=== PATIENT | female | born 1990 | race Caucasian/White ===

== ENCOUNTER → 2016-10-29 | Outpatient (CLI) | payer OTHER ==
--- NOTE | 2016-10-30 07:29 | US ---
EXAMINATION TYPE: US OB anatomy transabd DATE OF EXAM: 10/29/2016 4:22 PM COMPARISON: US on PACS first trimester August 29, 2016. HISTORY: LGA; TECHNIQUE: Transabdominal (TA) pelvic ultrasound. EXAM MEASUREMENTS: GESTATIONAL AGE / DATING Physician Established: (19 weeks/ day) EDC: 03/24/2017 Dates by LMP: ( weeks/ day) EDC: 03/24/2017 Dates by First Scan: ( weeks/ 4 days) EDC: 03/21/2017 Dates by Current Scan for: ( weeks/) EDC: 03/24/2017 SURVEY IUP: single PLACENTA: anterior PREVIA: No previa ANNIE: 11.9 cm Normal CERVICAL LENGTH (transabdominal: norm > 3.0cm): 4.6 cm BIOMETRY PRESENTATION: Breech LIE: Longitudinal BPD: 4.2 cm 18 weeks / 5 days HC: 15.9 cm 18 weeks / 5 days AC: 14.3 cm 19 weeks / 4 days FL: 3.1 cm 19 weeks / 3 days ESTIMATED WEIGHT IN GRAMS: 293.2 grams ESTIMATED WEIGHT IN LBS/OZS: 0 lbs. 10 oz. WEIGHT PERCENTAGE BASED ON ESTABLISHED DATE: 64.2 % HC/AC: 1.12 normal FL/AC: 21.39 normal HEART RATE: 142 bpm RHYTHM: Normal ANATOMY SEEN (within normal limits): * Lateral Vent (< 1 cm) 0.6 cm * Cisterna Magna (< 1.1 cm) 0.4 cm * Nuchal Fold (< 0.6 cm) 0.5 cm * Cerebellum (varies with age) 1.8 cm Choroid Plexus (bilateral) Midline Falx Cavus Septi Pellucidi Four Chamber Heart Outflow tracts: LVOT/RVOT Stomach Situs Diaphragm Kidneys (bilateral) Bladder Cord Insert Three Vessel Cord Longitudinal Spine Transverse Spine Arms (bilateral) Legs (bilateral) ANATOMY NOT SEEN: Nose / Lips and best seen after 20 weeks gestation TECHNOLOGIST IMPRESSION: single, live IUP,19 weeks/1 day,EDC: 03/24/2017,, HR142 bpm. Single live intrauterine gestation is redemonstrated. heart tones are regular and measure 142 b pm which is within normal limits. A breech presentation to fetus is currently seen. There is no evide nce for placenta previa. Amniotic fluid index is within normal limits. biometry measurements ar e consistent and within normal limits. Detailed anatomical survey shows no suspicious abnormality dur ing real-time scanning. Kidneys are difficult to visualize on still image saved. nose and lips cannot be documented on coronal plane. IMPRESSION: As above.
== END | disposition home or self-care (01) ==
LOC: RADUSWWP 14:55
PROVIDERS: ATTEND Obstetrics & Gynecology
DX: O36.62X0 Maternal care for excessive fetal growth, second trimester, not applicable or unspecified (principal); O32.1XX0 Maternal care for breech presentation, not applicable or unspecified; Z3A.19 19 weeks gestation of pregnancy
CPT/HCPCS: 76811

== ENCOUNTER → 2016-12-13 | Outpatient (CLI) | payer OTHER ==
[2016-12-13 10:59] LABS: CH 30.4; CHCM 34.3; HCT 37.3 % (34.0-46.0); HDW 2.96; HGB 12.8 gm/dL (11.4-16.0); MCH 30.5 pg (25.0-35.0); MCHC 34.3 g/dL (31.0-37.0); MCV 89.2 fL (80.0-100.0); Mean Platelet Volume 8.6; RBC 4.19 m/uL (3.80-5.40); RDW 12.8 % (11.5-15.5); WBC 7.1 k/uL (3.8-10.6)
== END ==
LOC: LABWHC1 08:53
PROVIDERS: ATTEND Obstetrics & Gynecology
DX: Z34.92 Encounter for supervision of normal pregnancy, unspecified, second trimester (principal); Z3A.00 Weeks of gestation of pregnancy not specified
CPT/HCPCS: 36415; 82950; 85027

== ENCOUNTER 2017-03-11 08:42 | Inpatient (IN) | payer OTHER ==
[2017-03-11] MEDS ORDERED: CARBOPROST TROMETHAMINE 250 MCG/ML 1 ML AMP IM PRN (09:52)
[2017-03-11] MEDS ORDERED: OXYTOCIN 10 UNIT/ML 1 ML VIAL IM PRN (09:52)
[2017-03-11] MEDS ORDERED: METHYLERGONOVINE 0.2 MG/ML 1 ML AMP IM PRN (09:52)
[2017-03-11] MEDS ORDERED: TERBUTALINE 1 MG/ML VIAL SQ PRN (09:52)
[2017-03-11] MEDS ORDERED: LIDOCAINE 1% (PF) 10 MG/ML (30 ML SDV) SQ PRN (09:52)
[2017-03-11] MEDS: LACTATED RINGERS 1,000 ML IV SCH ×2 (10:25→10:51)
[2017-03-11 10:44] LABS: Basophils % (A) 0 %; CH 28.8; CHCM 33.3; Eosinophils % (A) 0 %; HCT 38.4 % (34.0-46.0); HDW 3.04; HGB 12.7 gm/dL (11.4-16.0); Luc # (Auto) 0.33; Luc % (Auto) 5; Lymphocytes # (A) 1.6 k/uL (1.0-4.8); Lymphocytes % (A) 21 %; MCH 28.7 pg (25.0-35.0); MCV 86.8 fL (80.0-100.0); Mean Platelet Volume 8.9; Monocytes # (A) 0.3 k/uL (0-1.0); Monocytes % (A) 5 %; Neutrophils # (A) 5.1 k/uL (1.3-7.7); Neutrophils % (A) 69 %; RBC 4.43 m/uL (3.80-5.40); RDW 14.3 % (11.5-15.5); WBC 7.3 k/uL (3.8-10.6); WBC (Perox) 7.85
[2017-03-11 10:51] LABS: Appearance,Urine Clear (Clear); Bilirubin,Urine Negative (Negative); Glucose,Urine (UA) Negative (Negative); Ketones,Urine Negative (Negative); Leukocyte Esterase,Urine Negative (Negative); Nitrite,Urine Negative (Negative); Protein,Urine Trace (Negative); Specific Gravity,Urine 1.011 (1.001-1.035); UA Billing (MACRO vs. MICRO) CHEM; Urobilinogen,Urine <2.0 mg/dL (<2.0)
[2017-03-11 10:54] LABS: INR 0.9 (<1.1); Partial Thromboplastin Time 22.4 sec (22.0-30.0); Prothrombin Time 9.3 sec (9.0-12.0)
[2017-03-11 10:55] LABS: ALT 25 U/L (9-52); AST 19 U/L (14-36); LDH 533 U/L (313-618); Non-African American GFR(MDRD) >60 (>60 ml/min/1.73 sqM); Uric Acid 3.8 mg/dL (3.7-7.4)
[2017-03-11] MEDS ORDERED: BUPIVACAINE (PF) 0.25% 30 ML VIAL ONE (10:57)
[2017-03-11] MEDS ORDERED: fentaNYL (PF) 50 MCG/ML 5 ML AMP ONE (10:57)
[2017-03-11] MEDS ORDERED: SODIUM CHLORIDE 0.9% 100 ML BAG ONE (10:57)
[2017-03-11] MEDS ORDERED: BUPIVACAINE (PF) 0.25% 25 ML, fentaNYL (PF) 200 MCG in SODIUM CHLORIDE 0.9% 71 ML EPIDURAL ONE (11:12)
[2017-03-11 11:58] VITALS: BMI 34.3
--- NOTE | 2017-03-11 13:28 | P.HPOB ---
History of Present Illness H&P Date: 03/11/17 Chief Complaint: Contractions This is a 27-year-old female 4 para 1 with an estimated date of confinement of 03/24/2017, estimated gestational age of 38 and one sevenths weeks, who presents to labor and delivery complaining of contractions since approximate 4 AM this morning. She denies any rupture of membranes. care has been with Dr. Gregory and has been uncomplicated per patient. Her previous delivery was a section and she has signed consent for vaginal after . labs: GC/chlamydia-negative HIV-nonreactive Random glucose-121 Hepatitis B surface antigen-negative Hemoglobin-12.8 Platelet count-138,000 initially Rubella-nonimmune Blood type-A+ Antibody screen-negative Obstetrical ultrasound-normal anatomy One hour Glucola-115 Group B streptococcus-negative Obstetrical history: . History of 1 termination of and 1 miscarriage. History of a delivery at 39 weeks due to distress. Gynecologic history: No history of sexual transmitted disease. Social history: She is single. Works as a [employer]. Review of Systems Constitutional: Denies chills, Denies fever Eyes: denies blurred vision, denies pain Cardiovascular: Denies chest pain, Denies shortness of breath Respiratory: Denies cough Gastrointestinal: Reports abdominal pain (Contractions) Genitourinary: Reports pelvic pain, Reports Musculoskeletal: Denies myalgias Integumentary: Reports as per HPI Neurological: Denies numbness, Denies weakness Psychiatric: Denies anxiety, Denies depression Past Medical History Past Medical History: No Reported History History of Any Multi-Drug Resistant Organisms: None Reported Past Surgical History: Adenoidectomy, Section, Tonsillectomy Past Anesthesia/Blood Transfusion Reactions: No Reported Reaction Past Psychological History: No Psychological Hx Reported Smoking Status: Never smoker Past Alcohol Use History: None Reported Past Drug Use History: None Reported - Past Family History Mother Family Medical History: Hypertension Medications and Allergies Home Medications Medication Instructions Recorded Confirmed Type No Known Home Medications [No 03/11/17 03/11/17 History Known Home Medications] Allergies Allergy/AdvReac Type Severity Reaction Status Date / Time Sulfa (Sulfonamide Allergy Rash/Hives Verified 03/11/17 09:00 Antibiotics) Exam Osteopathic Statement: *. No significant issues noted on an osteopathic structural exam other than those noted in the History and Physical/Consult. - Vital Signs Vital signs: Vital Signs Temp Pulse Resp BP Pulse Ox 03/11/17 11:19 97.1 F L 85 18 165/98 100 03/11/17 09:01 97.1 F L 83 18 165/98 Intake and Output 03/10/17 03/11/17 03/11/17 22:59 06:59 14:59 Other: Weight 87.997 kg Patient Weight 03/12/17 06:59 Weight 87.997 kg HEENT: Within normal limits Heart: Regular rate and rhythm Lungs: Clear to auscultation bilaterally Abdomen: Cervix: 4-1/2 cm/70%/-2 station heart tones: Reactive Contractions: Every 2-5 minutes Extremities: Negative Homans Results Result Diagrams: 03/11/17 10:25 03/11/17 10:25 Abnormal Lab Results - Last 24 Hours (Table) 03/11/17 03/11/17 03/11/17 Range/Units 10:10 10:25 10:25 Plt Count 125 L (150-450) k/uL Creatinine 0.47 L (0.52-1.04) mg/dL Urine Protein Trace H (Negative) Assessment and Plan (1) 38 weeks gestation of Status: Acute (2) Previous delivery affecting Status: Acute (3) Elevated blood pressure complicating in third trimester, antepartum Status: Acute Plan: Proceed with admission for active labor. Epidural anesthesia. Will monitor blood pressures after epidural. We'll obtain labs for hypertension in . Patient has signed consent for vaginal after . Internal monitors will be placed for close monitoring of labor.
[2017-03-11] MEDS ORDERED: OXYTOCIN 20 UNITS/1000 ML NS 1,000 ML IV SCH ×2 (13:30→17:17)
--- NOTE | 2017-03-11 17:08 | P.PROBDLV ---
Vaginal Delivery Note - . Vaginal Delivery Note: The patient progressed to complete dilation after artificial rupture membranes with clear fluid noted and oxytocin augmentation of labor. She also received epidural anesthesia. Once reaching complete, she began pushing. 's head came to a crown. With one further push, the 's head delivered across the perineum followed by the anterior shoulder. Nose and mouth were bulb suctioned at the perineum. With one further push, the remainder the infant easily delivered and was placed on mother's abdomen. Brisk cry was noted immediately. A viable female was noted with scores of 9 at 1 minute and 9 at 5 minutes and weight of 5 lbs. 15 oz. Placenta delivered shortly thereafter, intact, with a three-vessel cord. Uterus contracted fairly well after oxytocin was given and uterine massage was carried out. A gloved hand was inserted into the anterior uterine cavity to ensure all placental tissue was removed and to remove blood clot. Inspection of the perineum revealed a second-degree perineal laceration. This area was anesthetized with 1% lidocaine and then sutured with 3-0 and 2-0 Vicryl suture in the usual multilayer fashion. Estimated blood loss is approximately 200 mL's. Both mother and infant are in stable condition. This was a vaginal after .
[2017-03-11] MEDS ORDERED: diphenhydrAMINE 50 MG CAP PO PRN (17:17)
[2017-03-11] MEDS ORDERED: HYDROCORTISONE 2.5% RECTAL CREAM 30 GM TUBE RECTAL PRN (17:17)
[2017-03-11] MEDS ORDERED: BENZOCAINE/MENTHOL SPRAY 1 GM/SPRAY AEROSOL TOPICAL PRN (17:17)
[2017-03-11] MEDS ORDERED: LANOLIN CREAM 5 GM TUBE TOPICAL PRN (17:17)
[2017-03-11] MEDS ORDERED: ZOLPIDEM 5 MG TAB PO PRN (17:17)
[2017-03-11] MEDS ORDERED: diphenhydrAMINE 50 MG/ML 1 ML VIAL IVP PRN ×2 (17:17)
[2017-03-11] MEDS ORDERED: SIMETHICONE 80 MG CHEWABLE PO PRN (17:17)
[2017-03-11] MEDS ORDERED: ACETAMINOPHEN TAB 325 MG TAB PO PRN (17:17)
[2017-03-11] MEDS ORDERED: diphenhydrAMINE 25 MG CAP PO PRN (17:17)
[2017-03-11] MEDS ORDERED: WITCH HAZEL 1 EACH MED..PAD TOPICAL PRN (17:17)
[2017-03-11] MEDS: IBUPROFEN 600 MG TAB PO PRN (17:59)
[2017-03-11] MEDS: SENNOSIDES-DOCUSATE SODIUM 1 EACH TAB PO SCH (20:02)
[2017-03-11] MEDS: Acetaminophen-Codeine 300-30mg TAB PO PRN (22:33)
[2017-03-12] MEDS: IBUPROFEN 600 MG TAB PO PRN ×3 (03:35→19:53)
[2017-03-12] MEDS: Acetaminophen-Codeine 300-30mg TAB PO PRN ×2 (07:29→17:06)
[2017-03-12] MEDS: SENNOSIDES-DOCUSATE SODIUM 1 EACH TAB PO SCH ×2 (07:30→19:48)
--- NOTE | 2017-03-12 09:01 | P.PNOBGVD ---
Subjective - Subjective Principal diagnosis: Status post vaginal after section day #1 Interval history: Patient is doing well. She is having some mild cramping that is controlled with oral pain medication. Lochia is moderate. Baby is in special care nursery at this time. Patient reports: Reports appetite normal, Reports voiding normally, Reports pain well controlled, Reports ambulating normally Royal: other (In special care nursery) Objective - Latest Vital Signs Latest vital signs: Vital Signs Temp Pulse Resp BP BP Pulse Ox 03/12/17 08:05 96 133/78 03/12/17 07:41 98.1 F 101 H 16 142/81 142/90 03/12/17 03:36 98.4 F 101 H 16 147/87 99 03/12/17 00:00 98.5 F 91 16 131/84 98 03/11/17 20:00 98.6 F 110 H 16 136/82 03/11/17 19:02 98.8 F 122 H 18 137/88 03/11/17 18:32 126 H 18 135/80 03/11/17 18:02 98.6 F 118 H 18 136/76 03/11/17 17:47 127 H 18 134/78 03/11/17 17:32 99.2 F 118 H 18 137/78 03/11/17 17:17 122 H 18 134/79 03/11/17 17:02 98.8 F 126 H 18 129/88 03/11/17 11:19 97.1 F L 85 18 165/98 100 03/11/17 09:01 97.1 F L 83 18 165/98 Intake and Output 03/11/17 03/12/17 03/12/17 22:59 06:59 14:59 Intake Total 12.9 Balance 12.9 Intake: Intake, IV Titration 12.9 Amount Oxytocin 20 Units/1000 ml 12.9 Ns 1,000 ml @ 1 MILLIUNIT/MIN 3 mls/hr IV .Q24H [facility] Rx#:[id number] Other: # Voids 1 - Exam Extremities: Present: normal. Absent: tenderness, edema Abdomen: Present: normal appearance, soft. Absent: distention, tenderness Uterus: Present: normal, firm. Absent: tenderness - Labs Labs: Abnormal Lab Results - Last 24 Hours (Table) 03/11/17 03/11/17 03/11/17 Range/Units 10:10 10:25 10:25 Plt Count 125 L (150-450) k/uL Creatinine 0.47 L (0.52-1.04) mg/dL Urine Protein Trace H (Negative) Assessment and Plan (1) 38 weeks gestation of Current Visit: Yes Status: Acute Code(s): Z3A.38 - 38 WEEKS GESTATION OF SNOMED Code(s): 80534549 (2) Previous delivery affecting Current Visit: Yes Status: Acute Code(s): O34.219 - MATERNAL CARE FOR UNSP TYPE SCAR FROM PREVIOUS DEL SNOMED Code(s): 791804371 (3) Elevated blood pressure complicating in third trimester, antepartum Current Visit: Yes Status: Acute Code(s): O13.3 - GESTATIONAL HTN W/O SIGNIFICANT PROTEINURIA, THIRD TRIMESTER SNOMED Code(s): 38670986 (4) Vaginal after () Narrative/Plan: Impression is day #1. Plan is to continue with care since baby is in special care nursery at this time. Anticipate discharge home tomorrow. Current Visit: Yes Status: Acute Code(s): O34.219 - MATERNAL CARE FOR UNSP TYPE SCAR FROM PREVIOUS DEL SNOMED Code(s): 263010376
[2017-03-12 09:26] LABS: Basophils % (A) 0 %; CH 28.3; CHCM 32.9; Eosinophils % (A) 0 %; HCT 32.3 % (34.0-46.0); HGB 10.6 gm/dL (11.4-16.0); Luc # (Auto) 0.21; Luc % (Auto) 4; Lymphocytes # (A) 2.3 k/uL (1.0-4.8); Lymphocytes % (A) 38 %; MCH 28.5 pg (25.0-35.0); MCHC 32.9 g/dL (31.0-37.0); MCV 86.4 fL (80.0-100.0); Mean Platelet Volume 8.2; Monocytes # (A) 0.3 k/uL (0-1.0); Monocytes % (A) 5 %; Neutrophils # (A) 3.3 k/uL (1.3-7.7); Neutrophils % (A) 53 %; RBC 3.74 m/uL (3.80-5.40); RDW 14.5 % (11.5-15.5); WBC 6.1 k/uL (3.8-10.6)
[2017-03-13] MEDS: Acetaminophen-Codeine 300-30mg TAB PO PRN ×2 (00:24→05:42)
--- NOTE | 2017-03-13 08:33 | P.DS ---
Providers Date of admission: 03/11/17 09:53 Expected date of discharge: 03/13/17 Attending physician: Mai Gregory - Discharge Diagnosis(es) (1) 38 weeks gestation of Current Visit: Yes Status: Acute (2) Previous delivery affecting Current Visit: Yes Status: Acute (3) Elevated blood pressure complicating in third trimester, antepartum Current Visit: Yes Status: Acute (4) Vaginal after () Current Visit: Yes Status: Acute Hospital Course: This is a 27-year-old female 4 para 1 at 38 and one sevenths weeks who presented in active labor. She initially had some elevated blood pressures that did resolve after epidural anesthesia. All her labs were normal other than she has slightly low platelets that has been present throughout her . She had a successful vaginal after section and delivered a viable female with scores of 9 at 1 minute and 9 at 5 minutes and weight of 5 lbs. 15 oz. on 03/11/2017. She is attempting to breast-feed and pump her breast milk. Baby is in special care nursery on antibiotics at this time. Lochia is decreasing. Pain is fairly well controlled with oral pain medications. Vital signs are stable. Abdomen is soft with fundus firm and nontender. Extremities show negative Homans. Impression is status post vaginal delivery after day #2. Plan is to discharge home today. Routine instructions are given. She will be given a prescription for ibuprofen as needed. She already has a breast pump at home. She is advised to follow up with Dr. Gregory in 6 weeks for her check. She is advised to call the office if she has any further questions or concerns prior to her appointment time. Procedures: Vaginal after section on 03/11/2017 Patient Condition at Discharge: Stable Plan - Discharge Summary New Discharge Prescriptions: New Acetaminophen Tab [Tylenol] 650 mg PO Q4HR PRN tab PRN Reason: Mild Pain Or Fever >= 100.5 Ibuprofen [Motrin] 600 mg PO Q6HR PRN #60 tab PRN Reason: Mild Pain Or Fever >= 100.5 Discharge Medication List Acetaminophen Tab [Tylenol] 650 mg PO Q4HR PRN tab 03/13/17 [Rx] Ibuprofen [Motrin] 600 mg PO Q6HR PRN #60 tab 03/13/17 [Rx] Follow up Appointment(s)/Referral(s): Mai Gregory DO [Doctor of Osteopathic Medicine] - 6 Weeks Activity/Diet/Wound Care/Special Instructions: Instructions 1. Do not begin any exercise program for 3 weeks. 2. Do not resume sexual relations for 3 weeks or longer if uncomfortable. 3. You may take tub baths or showers at any time. 4. You may use tampons if desired after 3 weeks. 5. Keep the area of episiotomy (stitches) clean and dry. 6. If you are not nursing, wear a good fitting, supportive bra during the day and limit fluid intake for at least 1 week to prevent breast engorgement. 7. Call the office, [phone], within the next week to make appointment for your 6 week checkup if it has not already been made. 8. Report any of the following occurrences to the doctor promptly: a. Heavy, excessive bleeding b. Chills, fever c. Burning or frequency of urination d. Pain or redness and breasts if nursing e. Increasing pain or swelling in episiotomy (stitches). In addition to the above instructions, the following additional should be followed: 1. No heavy lifting or straining (exercising) until after 6 week checkup. 2. Keep abdominal incision clean and dry: You may wear a dressing if more comfortable. 3. Make office appointment for 10 days after going home or as instructed by her doctor. Discharge Disposition: HOME SELF-CARE
[2017-03-13 09:36] VITALS: RESP 18
[2017-03-13] MEDS: SENNOSIDES-DOCUSATE SODIUM 1 EACH TAB PO SCH (10:26)
[2017-03-13] MEDS: IBUPROFEN 600 MG TAB PO PRN ×2 (10:26→18:23)
[2017-03-13 16:54] VITALS: BP 139/92; PULSE 98; TEMP 98.3
== END 2017-03-13 18:36 | disposition home or self-care (01) | DRG 775 ==
LOC: FBPOP 08:42 → 4FBP 09:53
PROVIDERS: ADMIT Obstetrics & Gynecology; ATTEND Obstetrics & Gynecology
PROC: 10E0XZZ Delivery of Products of Conception, External Approach (ICD-10-PCS; principal; 2017-03-11)
PROC: 0KQM0ZZ Repair Perineum Muscle, Open Approach (ICD-10-PCS; 2017-03-11)
DX: O34.219 Maternal care for unspecified type scar from previous cesarean delivery (principal); O99.12 Other diseases of the blood and blood-forming organs and certain disorders involving the immune mechanism complicating childbirth; D69.6 Thrombocytopenia, unspecified; R03.0 Elevated blood-pressure reading, without diagnosis of hypertension; O26.893 Other specified pregnancy related conditions, third trimester; O70.1 Second degree perineal laceration during delivery; Z37.0 Single live birth; Z3A.38 38 weeks gestation of pregnancy; Z88.2 Allergy status to sulfonamides; Z82.49 Family history of ischemic heart disease and other diseases of the circulatory system
CPT/HCPCS: 59025; 81003; 82565; 83615; 84450; 84460; 84550; 85025; 85610; 85730; 86850; 86900; 86901; 88307; 99213

== ENCOUNTER 2017-03-25 17:31 | Emergency (ER) | payer OTHER ==
[2017-03-25 18:02] VITALS: RESP 20
--- NOTE | 2017-03-25 19:43 | ED ---
General Adult HPI - General Chief complaint: Fever Stated complaint: Fever post delivery Time Seen by Provider: 03/25/17 19:04 Source: patient, RN notes reviewed Mode of arrival: ambulatory Limitations: no limitations - History of Present Illness Initial comments: If complaint history of present illness a 27-year-old female with complaint of fever for 2 days. Patient was at the urgent care yesterday complaining of a sore throat rapid strep was negative. No adenopathy. Mild headache but no meningismus no stiff neck. Current temperature 99.7. No nausea no vomiting slightly runny nose. She did have normal spontaneous vaginal delivery with the PTO or feet 2 weeks ago. It is tender in that area. Examination pending. - Related Data Previous Rx's Medication Instructions Recorded Ibuprofen [Motrin] 600 mg PO Q6HR PRN #60 tab 03/13/17 Ciprofloxacin HCl [Cipro] 500 mg PO Q12HR #14 tablet 03/25/17 Allergies Allergy/AdvReac Type Severity Reaction Status Date / Time measles, mumps, and rubella Allergy Unknown Verified 03/25/17 19:46 vaccine Childhood [From M-M-R II] Sulfa (Sulfonamide Allergy Rash/Hives Verified 03/25/17 19:45 Antibiotics) Review of Systems ROS Statement: Those systems with pertinent positive or pertinent negative responses have been documented in the HPI. Review of systems no complaint of any other mild headache and fever. But no evidence of any meningismus or stiff neck. No chest pain shortness breath GI/ problems complained of. She did have diffuse your for 2 weeks ago for numb normal spontaneous vaginal delivery. All systems reviewed. Past medical problems none surgeries . Family history an aunt had lung cancer. Patient has hives with sulfa. Nonsmoker nondrinker. ROS Other: All systems not noted in ROS Statement are negative. Past Medical History Past Medical History: No Reported History History of Any Multi-Drug Resistant Organisms: None Reported Past Surgical History: Adenoidectomy, Section, Tonsillectomy Past Anesthesia/Blood Transfusion Reactions: No Reported Reaction Past Psychological History: No Psychological Hx Reported Smoking Status: Never smoker Past Alcohol Use History: None Reported Past Drug Use History: None Reported - Past Family History Mother Family Medical History: Hypertension General Exam - General Exam Comments Initial Comments: General: The patient is awake and alert, in no distress, and does not appear acutely ill. Reports a fever for 2 days. Current temperature 99.7. Patient took ibuprofen at 4 PM today. Vital signs temp 99.7 pulse 99 respiratory rate 20 pulse ox 90% room air blood pressure 152/90. Eye: Pupils are equal, round and reactive to light, extra-ocular movements are intact ; there is normal conjunctiva bilaterally. No signs of icterus. Ears, nose, mouth and throat: There are moist mucous membranes and no oral lesions. Neck: The neck is supple, there is no tenderness , no anterior cervical lymphadenopathy, thyroid not enlarged. No stiff neck. No meningismus. Cardiovascular: There is a regular rate and rhythm. No murmur, rub or gallop is appreciated. Respiratory: Lungs are clear to auscultation, respirations are non-labored, breath sounds are equal. No wheezes, stridor, rales, or rhonchi. Gastrointestinal: Soft, non-distended, non-tender abdomen without masses or organomegaly noted. There is no rebound or guarding present. No CVA tenderness. Bowel sounds are unremarkable. Genitalia examination. No discharge noted. The episiorrhaphy appears to be healing without infection. No pain with palpation. M examination done with nurse Valentina. Back: There is no tenderness to palpation in the midline. There is no obvious deformity. No rashes noted. Negative kidney punch his. Musculoskeletal: Normal ROM, no tenderness, There is no pedal edema. There is no calf tenderness or swelling. Sensation intact. Neurological: No neuro deficits. Skin: Skin is warm and dry and no rashes or lesions are noted. Limitations: no limitations Course Vital Signs 03/25/17 03/25/17 17:59 19:18 Temperature 99.7 F H Pulse Rate 99 Respiratory 20 20 Rate Blood Pressure 152/90 O2 Sat by Pulse 99 Oximetry Medical Decision Making - Medical Decision Making Rectal decision making. The patient's urine shows 15 red blood cells are 57 reds only 4 squamous. Positive leukoesterase. Patient be placed on Cipro 500 twice a day for 1 week. She does have an ALLERGY to sulfa. - Lab Data Lab Results 03/25/17 Range/Units 19:41 Urine Color Yellow Urine Appearance Cloudy H (Clear) Urine pH 6.5 (5.0-8.0) Ur Specific [place] 1.015 (1.001-1.035) Urine Protein Trace H (Negative) Urine Glucose (UA) Negative (Negative) Urine Ketones Negative (Negative) Urine Blood Negative (Negative) Urine Nitrite Negative (Negative) Urine Bilirubin Negative (Negative) Urine Urobilinogen 2.0 (<2.0) mg/dL Ur Leukocyte Esterase Large H (Negative) Urine RBC 15 H (0-5) /hpf Urine WBC 157 H (0-5) /hpf Ur Squamous Epith Cells 4 (0-4) /hpf Urine Mucus Many H (None) /hpf Disposition Clinical Impression: Urinary tract infection Disposition: HOME SELF-CARE Condition: Good Instructions: Urinary Tract Infection in Women (ED) Additional Instructions: Increase fluids. Take Cipro 500 twice a day for 1 week. Get urine rechecked one week later. Follow-up family physician Prescriptions: Ciprofloxacin HCl [Cipro] 500 mg PO Q12HR #14 tablet Referrals: None,Stated [Primary Care Provider] - 1-2 days Time of Disposition: 20:15
[2017-03-25 19:56] LABS: Appearance,Urine Cloudy (Clear); Bilirubin,Urine Negative (Negative); Glucose,Urine (UA) Negative (Negative); Ketones,Urine Negative (Negative); Leukocyte Esterase,Urine Large (Negative); Mucus,Urine Many /hpf; Nitrite,Urine Negative (Negative); PH, Urine 6.5 (5.0-8.0); Particle Count 13271; Protein,Urine Trace (Negative); RBC,Urine 15 /hpf (0-5); Specific Gravity,Urine 1.015 (1.001-1.035); Squamous Epithelial Cell,Urine 4 /hpf (0-4); UA Billing (MACRO vs. MICRO) MICRO; WBC,Urine 157 /hpf (0-5)
[2017-03-25 20:26] VITALS: BP 142/89; PULSE 85; TEMP 98.7
== END 2017-03-25 20:25 | disposition home or self-care (01) ==
LOC: EC 17:31
DX: O86.20 Urinary tract infection following delivery, unspecified (principal); Z88.2 Allergy status to sulfonamides; Z88.7 Allergy status to serum and vaccine
CPT/HCPCS: 81001; 87086; 99283

== ENCOUNTER → 2017-05-23 | Outpatient (CLI) | payer OTHER | END | disposition home or self-care (01) | LOC: LABWHC1 10:53 | PROVIDERS: ATTEND Obstetrics & Gynecology | DX: N92.6 Irregular menstruation, unspecified (principal) | CPT/HCPCS: 36415; 84702 ==

== ENCOUNTER 2017-06-03 11:36 | Emergency (ER) | payer OTHER ==
[2017-06-03 13:16] LABS: Appearance,Urine Clear (Clear); Bacteria,Urine Rare /hpf; Bilirubin,Urine Negative (Negative); Glucose,Urine (UA) Negative (Negative); Ketones,Urine Negative (Negative); Leukocyte Esterase,Urine Trace (Negative); Mucus,Urine Occasional /hpf; Nitrite,Urine Negative (Negative); Particle Count 3808; Protein,Urine Trace (Negative); RBC,Urine 8 /hpf (0-5); Specific Gravity,Urine 1.013 (1.001-1.035); Squamous Epithelial Cell,Urine 5 /hpf (0-4); UA Billing (MACRO vs. MICRO) MICRO; Urobilinogen,Urine <2.0 mg/dL (<2.0); WBC,Urine 5 /hpf (0-5)
[2017-06-03 13:23] VITALS: BP 138/86; PULSE 73; RESP 18; TEMP 99.4
--- NOTE | 2017-06-03 14:00 | ED ---
Fever HPI - General Chief Complaint: Fever Stated Complaint: fever x 1 week Time Seen by Provider: 06/03/17 12:31 Source: patient Mode of arrival: ambulatory Limitations: no limitations - History of Present Illness Initial Comments: This 27-year-old white female presents with a complaint of some fever as well as chills. She states that she has had it for approximately one week. It seems intermittent in nature. She relates that she also was diagnosed with urinary tract infection a couple months ago. She was asymptomatic at that time. She currently denies any frequency urgency or dysuria. She denies any nasal congestion, sore throat, earaches, cough, or shortness of breath. She denies any abdominal pain. She relates that she will take occasional Tylenol or Motrin for the fever and this seems to help. Her symptoms overall are fairly mild. The highest temperature she has measured his been between 101 and 102. No other complaints or modifying factors. - Related Data Home Medications Medication Instructions Recorded Confirmed Acetaminophen Tab [Tylenol Tab] 1,000 mg PO Q6HR PRN 06/03/17 06/03/17 Escitalopram [Lexapro] 10 mg PO HS 06/03/17 06/03/17 Lo Loestrin Fe 1 tab PO HS 06/03/17 06/03/17 Previous Rx's Medication Instructions Recorded Ciprofloxacin HCl [Cipro] 500 mg PO Q12HR #14 tablet 06/03/17 Allergies Allergy/AdvReac Type Severity Reaction Status Date / Time measles, mumps, and rubella Allergy Unknown Verified 06/03/17 13:27 vaccine Childhood [From M-M-R II] Sulfa (Sulfonamide Allergy Rash/Hives Verified 06/03/17 13:27 Antibiotics) Review of Systems ROS Statement: Those systems with pertinent positive or pertinent negative responses have been documented in the HPI. ROS Other: All systems not noted in ROS Statement are negative. Past Medical History Past Medical History: No Reported History History of Any Multi-Drug Resistant Organisms: None Reported Past Surgical History: Adenoidectomy, Section, Tonsillectomy Past Anesthesia/Blood Transfusion Reactions: No Reported Reaction Past Psychological History: No Psychological Hx Reported Smoking Status: Never smoker Past Alcohol Use History: None Reported Past Drug Use History: None Reported - Past Family History Mother Family Medical History: Hypertension General Exam - General Exam Comments Initial Comments: GENERAL: The patient is well nourished and well hydrated. VITAL SIGNS: Heart rate, blood pressure, respiratory rate reviewed as recorded in nurse's notes. EYES: Pupils are round and reactive. Extraocular movements are intact. No conjunctival / lid redness or swelling. ENT: No external evidence of injury, swelling, or ecchymosis. Airway is patent. Throat is clear. Tympanic membranes are clear. NECK: Nontender. No swelling or evidence of injury. No subcutaneous emphysema. Trachea is midline. No thyroid mass. HEART: Regular rate and rhythm. Good peripheral pulses. LUNGS/CHEST: Breath sounds clear and equal bilaterally. No rales, rhonchi, or wheezes. No ecchymosis, subcutaneous emphysema, or tenderness. ABDOMEN: Abdomen soft without tenderness. No palpable masses or organomegaly. No peritoneal signs. No abdominal wall swelling or ecchymosis. EXTREMITIES: No extremity tenderness. Normal muscle tone and function. No thoracolumbar tenderness. NEUROLOGIC: Sensation is grossly intact. Cranial nerve exam reveals face is symmetrical, tongue is midline, speech is clear. SKIN: No abrasions or ecchymosis is noted. No induration or masses noted. PSYCHIATRIC: Alert and oriented. Appropriate behavior and judgment. Limitations: no limitations Course Vital Signs 06/03/17 06/03/17 11:59 13:20 Temperature 100.0 F H 99.4 F Pulse Rate 94 73 Respiratory 20 18 Rate Blood Pressure 144/90 138/86 O2 Sat by Pulse 99 98 Oximetry Medical Decision Making - Medical Decision Making The patient was seen and examined. All diagnostics were reviewed. The urinalysis does show equivocal evidence of possible urinary tract infection. She'll be treated for this. There is no other signs of infection noted per history or on clinical exam. It is felt as though she is stable for outpatient treatment with a trial of antibiotics. A culture will be taken and is pending and she is instructed to follow-up with us in 3-4 days with primary physician. - Lab Data Lab Results 06/03/17 Range/Units 12:58 Urine Color Yellow Urine Appearance Clear (Clear) Urine pH 7.0 (5.0-8.0) Ur Specific [place] 1.013 (1.001-1.035) Urine Protein Trace H (Negative) Urine Glucose (UA) Negative (Negative) Urine Ketones Negative (Negative) Urine Blood Moderate H (Negative) Urine Nitrite Negative (Negative) Urine Bilirubin Negative (Negative) Urine Urobilinogen <2.0 (<2.0) mg/dL Ur Leukocyte Esterase Trace H (Negative) Urine RBC 8 H (0-5) /hpf Urine WBC 5 (0-5) /hpf Ur Squamous Epith Cells 5 H (0-4) /hpf Urine Bacteria Rare H (None) /hpf Urine Mucus Occasional H (None) /hpf Disposition Clinical Impression: Fever, UTI (urinary tract infection) Disposition: HOME SELF-CARE Condition: Good Instructions: Fever in Adults (ED), Urinary Tract Infection in Women (ED) Additional Instructions: Please use Tylenol and/or Motrin if needed for additional fevers. Prescriptions: Ciprofloxacin HCl [Cipro] 500 mg PO Q12HR #14 tablet Referrals: Jose David Christine MD [Primary Care Provider] - 06/06/17 Time of Disposition: 14:00
== END 2017-06-03 14:11 | disposition home or self-care (01) ==
LOC: EC 11:36
DX: N39.0 Urinary tract infection, site not specified (principal); Z79.3 Long term (current) use of hormonal contraceptives; Z79.899 Other long term (current) drug therapy; Z88.2 Allergy status to sulfonamides; Z88.7 Allergy status to serum and vaccine
CPT/HCPCS: 81001; 87086; 99283

== ENCOUNTER → 2017-06-17 | Outpatient (CLI) | payer OTHER ==
[2017-06-17 15:32] LABS: Aty Lym Flag Marked; CH 25.7; CHCM 31.5; HCT 33.9 % (34.0-46.0); HGB 10.9 gm/dL (11.4-16.0); Hypochromasia Slight; MCH 26.4 pg (25.0-35.0); MCHC 32.1 g/dL (31.0-37.0); MCV 82.3 fL (80.0-100.0); Mean Platelet Volume 8.3; RBC 4.11 m/uL (3.80-5.40); RDW 15.7 % (11.5-15.5); WBC (Perox) 6.09
[2017-06-17 16:43] LABS: Add Differential Manual Differential
[2017-06-17 16:45] LABS: Nucleated Red Blood Cells 0 /100 WBC (0-0); Polychromasia Present; Total Cells Counted 100
[2017-06-18 11:12] LABS: Reactive Lymphocytes Present
== END | disposition home or self-care (01) ==
LOC: LABWHC1 14:44
PROVIDERS: ATTEND Obstetrics & Gynecology
DX: Z01.818 Encounter for other preprocedural examination (principal)
CPT/HCPCS: 36415; 85025

== ENCOUNTER 2017-06-25 08:01 | Day surgery (SDC) | payer OTHER ==
[2017-06-24 09:48] VITALS: BMI 30.9
--- NOTE | 2017-06-24 17:36 | P.HPOB ---
History of Present Illness H&P Date: 06/24/17 Chief Complaint: high grade cervical dysplasia 27-year-old female presents for LEEP due to high-grade cervical dysplasia. She would also like a Mirena placed Review of Systems All systems: negative Constitutional: Denies chills, Denies fever Eyes: denies blurred vision, denies pain Ears, nose, mouth and throat: Denies headache, Denies sore throat Cardiovascular: Denies chest pain, Denies shortness of breath Respiratory: Denies cough Gastrointestinal: Denies abdominal pain, Denies diarrhea, Denies nausea, Denies vomiting Genitourinary: Denies dysuria, Denies hematuria Musculoskeletal: Denies myalgias Integumentary: Denies pruritus, Denies rash Neurological: Denies numbness, Denies weakness Psychiatric: Denies anxiety, Denies depression Endocrine: Denies fatigue, Denies weight change Past Medical History Past Medical History: No Reported History History of Any Multi-Drug Resistant Organisms: None Reported Past Surgical History: Adenoidectomy, Section, Tonsillectomy Past Anesthesia/Blood Transfusion Reactions: No Reported Reaction Past Psychological History: Depression Smoking Status: Never smoker Past Alcohol Use History: None Reported Past Drug Use History: None Reported - Past Family History Mother Family Medical History: Hypertension Medications and Allergies Home Medications Medication Instructions Recorded Confirmed Type Escitalopram [Lexapro] 10 mg PO HS 06/03/17 06/24/17 History Lo Loestrin Fe 1 tab PO HS 06/03/17 06/24/17 History Allergies Allergy/AdvReac Type Severity Reaction Status Date / Time measles, mumps, and rubella Allergy Unknown Verified 06/24/17 09:38 vaccine Childhood [From M-M-R II] Sulfa (Sulfonamide Allergy Rash/Hives Verified 06/24/17 09:38 Antibiotics) Exam Osteopathic Statement: *. No significant issues noted on an osteopathic structural exam other than those noted in the History and Physical/Consult. - Vital Signs Vital signs: Intake and Output 06/24/17 06/24/17 06/24/17 06:59 14:59 22:59 Other: Weight 79.379 kg Patient Weight 06/25/17 06:59 Weight 79.379 kg Heart: Regular rate and rhythm Lungs: Clear to auscultation bilaterally Abdomen: Soft, nontender Extremities: Negative Homans sign Assessment and Plan (1) Cervical dysplasia Status: Acute (2) Encounter for insertion of progestin-releasing intrauterine contraceptive device Status: Acute Plan: 1. LEEP 2. Insertion of Mirena
[~2017-06-25 08:01] MED LIST: HYDROmorphone 0.5 MG/0.5 ML SYRINGE IVP PRN; LACTATED RINGERS 1,000 ML IV SCH; ONDANSETRON 4 MG/2 ML VIAL IVP PRN; Pre Op ABX Message 1 EACH MISC MISCELLANE ONE
[2017-06-25] MEDS ORDERED: LIDOCAINE 1% 20 ML VIAL (10MG/ML) FOR IV START INTRADERMA ONE (08:39)
[2017-06-25] MEDS ORDERED: LIDOCAINE 1% INJ 10MG/ML (20 ML MDV) ONE (09:18)
[2017-06-25] MEDS ORDERED: fentaNYL (PF) 50 MCG/ML 2 ML AMP ONE (09:18)
[2017-06-25] MEDS ORDERED: MIDAZOLAM 2 MG/2 ML VIAL ONE (09:18)
[2017-06-25] MEDS ORDERED: KETOROLAC 30 MG/ML 1 ML VIAL ONE (09:18)
[2017-06-25] MEDS ORDERED: PROPOFOL 10 MG/ML 20 ML VIAL IV ONE (09:18)
[2017-06-25] MEDS ORDERED: GLYCOPYRROLATE 0.2 MG/ML 2 ML VIAL ONE (09:18)
[2017-06-25] MEDS ORDERED: ACETIC ACID 15 DROPS/ML DROPS MISCELLANE ONE (09:35)
[2017-06-25] MEDS ORDERED: FERRIC SUBSULFATE (MONSELS) JAR TOPICAL ONE (09:36)
--- NOTE | 2017-06-25 09:45 | P.OP ---
Date of Procedure: 06/25/17 Preoperative Diagnosis: 1. cervical dysplasia 2. contraceptive management Postoperative Diagnosis: 1. cervical dysplasia 2. contraceptive management Procedure(s) Performed: LEEP and placement of Mirena IUD Anesthesia: MIMI Surgeon: Mai Gregory Estimated Blood Loss (ml): 5 IV fluids (ml): 500 Urine output (ml): 50 Pathology: other (cervical cone) Condition: stable Disposition: PACU Description of Procedure: Patient taken the operating room where general anesthesia was obtained without difficulty. She is prepped and draped in normal sterile fashion dorsal lithotomy position, legs placed in candycane stirrups. Bladder was drained of all urine. Bradford speculum place in vagina and hooked to suction. A loop electrocautery was used to obtain a cervical cone specimen first the anterior lip and the posterior lip were taken. the ball tip cautery was then used to cauterize the crater left in the cervix. Hemostasis was assured. The anterior lip the cervix was grasped with single-tooth tenaculum. The uterus was then sounded to 12 cm. The Mirena was placed in normal fashion. Strings were cut 3 cm from the cervical os. Monsel's was placed to ensure hemostasis.patient tolerated the procedure well. Sponge and instrument counts were correct 2. She was taken to recovery room in stable condition.
[2017-06-25 09:57] VITALS: TEMP 97.2
[2017-06-25 10:02] VITALS: RESP 18
[2017-06-25 10:49] VITALS: BP 130/80; PULSE 101
== END 2017-06-25 11:14 | disposition home or self-care (01) ==
LOC: OR 08:01
PROVIDERS: ATTEND Obstetrics & Gynecology
DX: N87.1 Moderate cervical dysplasia (principal); Z79.3 Long term (current) use of hormonal contraceptives; Z79.899 Other long term (current) drug therapy; Z88.2 Allergy status to sulfonamides; Z88.7 Allergy status to serum and vaccine
CPT/HCPCS: 57522; 58300; 81025; 88307; J2250; J2405; J2001; J3010; J1885; J2704

== ENCOUNTER 2018-12-21 18:05 | Emergency (ER) | payer OTHER ==
[2018-12-21 18:09] VITALS: RESP 18
[2018-12-21] MEDS ORDERED: IBUPROFEN 600 MG TAB PO STA (18:35)
[2018-12-21] MEDS ORDERED: ACETAMINOPHEN TAB 500 MG TAB PO STA (18:35)
--- NOTE | 2018-12-21 18:46 | ED ---
Fever HPI - General Chief Complaint: Fever Stated Complaint: Fever Time Seen by Provider: 12/21/18 18:13 Source: patient Mode of arrival: ambulatory Limitations: no limitations - History of Present Illness Initial Comments: 28-year-old female patient presents to the emergency department today for evaluation of fever. Patient states that she did have a tooth pulled on Saturday. Patient states she's been having pain since denies any increase of the pain or increased swelling to her face. Denies any drainage from the dental extraction site. Patient states she has also had upper respiratory symptoms for the last 2 weeks. States that this started initially with nasal congestion, sore throat, and cough. States that the cough has persisted and does seem to be worsening. States that she does cough up sputum but she is unsure what color it is. Patient states the fever started this morning. States she did take 600 mg of ibuprofen around 1:00. She denies any hematuria, dysuria, urinary frequency, urinary urgency. Denies any neck pain or headache. Denies rash or wounds. Patient denies any recent shortness breath, chest pain, abdominal pain, nausea, vomiting, diarrhea, constipation, back pain, numbness, tingling, dizziness, weakness, headache, visual changes, or any other complaints. - Related Data Home Medications Medication Instructions Recorded Confirmed Escitalopram [Lexapro] 10 mg PO HS 06/03/17 06/25/17 Lo Loestrin Fe 1 tab PO HS 06/03/17 06/25/17 Previous Rx's Medication Instructions Recorded Ibuprofen [Motrin] 600 mg PO Q6HR PRN #30 tab 06/25/17 Amoxic-Pot Clav 875-125Mg 1 tab PO Q12HR #20 tablet 12/21/18 [Augmentin 875-125] Azithromycin [Zithromax Z-pack] 0 mg PO DIRECTED #6 tab 12/21/18 guaiFENesin-DM 600/30MG [Mucinex 1 each PO Q12HR #10 tab.er.12h 12/21/18 Dm] Allergies Allergy/AdvReac Type Severity Reaction Status Date / Time measles, mumps, and rubella Allergy Unknown Verified 12/21/18 18:09 vaccine Childhood [From M-M-R II] Sulfa (Sulfonamide Allergy Rash/Hives Verified 12/21/18 18:09 Antibiotics) Review of Systems ROS Statement: Those systems with pertinent positive or pertinent negative responses have been documented in the HPI. ROS Other: All systems not noted in ROS Statement are negative. Past Medical History Past Medical History: No Reported History History of Any Multi-Drug Resistant Organisms: None Reported Past Surgical History: Adenoidectomy, Section, Tonsillectomy Past Anesthesia/Blood Transfusion Reactions: No Reported Reaction Past Psychological History: No Psychological Hx Reported Smoking Status: Never smoker Past Alcohol Use History: None Reported Past Drug Use History: None Reported - Past Family History Mother Family Medical History: Hypertension General Exam Limitations: no limitations General appearance: alert, in no apparent distress, other (Physical well- developed, well-nourished adult female patient in no acute distress. Vital signs upon presentation are temperature 101.9F, pulse 142, respirations 18, blood pressure 140/90, pulse ox 98% on room air.) Eye exam: Present: normal appearance, PERRL, EOMI. Absent: scleral icterus, conjunctival injection, periorbital swelling ENT exam: Present: normal exam, normal oropharynx, mucous membranes moist, TM's normal bilaterally, other (Dental extraction site appears to be healing well, no gingival erythema or hyperplasia. No evidence of abscess. No drainage.) Neck exam: Present: normal inspection. Absent: tenderness, meningismus, lymphadenopathy Respiratory exam: Present: normal lung sounds bilaterally. Absent: respiratory distress, wheezes, rales, rhonchi, stridor Cardiovascular Exam: Present: normal rhythm, tachycardia, normal heart sounds. Absent: systolic murmur, diastolic murmur, rubs, gallop, clicks GI/Abdominal exam: Present: soft, normal bowel sounds. Absent: distended, tenderness, guarding, rebound, rigid Neurological exam: Present: alert, oriented X3, CN II-XII intact Psychiatric exam: Present: normal affect, normal mood Skin exam: Present: warm, dry, intact, normal color. Absent: rash Course Vital Signs 12/21/18 12/21/18 12/21/18 18:07 18:27 18:30 Temperature 101.9 F H Pulse Rate 142 H 125 H Pulse Rate [ 133 H Rail Bender ] Respiratory 18 19 Rate Blood Pressure 140/90 130/88 O2 Sat by Pulse 98 97 Oximetry 12/21/18 12/21/18 12/21/18 18:32 19:11 20:13 Temperature 101.6 F H 100.1 F H Pulse Rate 126 H 135 H 103 H Pulse Rate [ Rail Bender ] Respiratory 18 18 18 Rate Blood Pressure 121/103 113/92 O2 Sat by Pulse 98 96 96 Oximetry Medical Decision Making - Medical Decision Making 28-year-old female patient presents to the emergency department today for evaluation of cough and fever. Patient states his been sick with upper respiratory symptoms for the last 2 weeks. Patient states her cough is worsening and she is having sputum production. Patient also had a tooth pulled on Saturday but denies any drainage or issues with the site except for continued pain. Physical examination reveals clear equal lung sounds. Examination of the dental extraction site shows a normal healing wound. There is no gingival erythema hyperplasia or evidence of abscess. Patient was febrile upon arrival 102F. She is given Tylenol and ibuprofen. Chest x-ray did show right upper lobe pneumonia. Vital signs did improve with medication administration. We will start azithromycin to cover pneumonia and Augmentin to cover atypical pneumonias as well as possibility of beginning dental infection. She is instructed to follow-up with her primary care physician for recheck in 1-2 days. Return parameters were discussed in detail. She verbalizes understanding and agrees with this plan. - Lab Data Lab Results 12/21/18 12/21/18 12/21/18 Range/Units 18:45 18:46 18:46 Urine Color Yellow Urine Appearance Clear (Clear) Urine pH 5.5 (5.0-8.0) Ur Specific [place] 1.022 (1.001-1.035) Urine Protein Negative (Negative) Urine Glucose (UA) Negative (Negative) Urine Ketones 2+ H (Negative) Urine Blood Small H (Negative) Urine Nitrite Negative (Negative) Urine Bilirubin Negative (Negative) Urine Urobilinogen <2.0 (<2.0) mg/dL Ur Leukocyte Esterase Negative (Negative) Urine RBC 16 H (0-5) /hpf Urine WBC 3 (0-5) /hpf Ur Squamous Epith Cells 3 (0-4) /hpf Urine Bacteria Rare H (None) /hpf Hyaline Casts 2 (0-2) /lpf Urine Mucus Moderate H (None) /hpf Urine HCG, Qual Not Detected (Not Detectd) Influenza Type A RNA Not Detected (Not Detectd) Influenza Type B (PCR) Not Detected (Not Detectd) - Radiology Data Radiology results: report reviewed, image reviewed Two-view x-ray of the chest is obtained. Report was reviewed in its entirety. Impression by Dr. Pinedo shows right upper lobe pneumonia. Disposition Clinical Impression: Right upper lobe pneumonia Disposition: HOME SELF-CARE Condition: Good Instructions (If sedation given, give patient instructions): Fever in Adults (ED), Pneumonia (ED) Additional Instructions: Complete antibiotic prescriptions in full. Consider taking an [id number] probiotic to prevent diarrhea. Follow-up with your primary care physician for recheck in 1-2 days. Return to the emergency department immediately for any new, worsening, or concerning symptoms. Prescriptions: Amoxic-Pot Clav 875-125Mg [Augmentin 875-125] 1 tab PO Q12HR #20 tablet guaiFENesin-DM 600/30MG [Mucinex Dm] 1 each PO Q12HR #10 tab.er.12h Azithromycin [Zithromax Z-pack] 0 mg PO DIRECTED #6 tab Is patient prescribed a controlled substance at d/c from ED?: No Referrals: Jose David Christine MD [Primary Care Provider] - 1-2 days Time of Disposition: 20:34
[2018-12-21 19:19] LABS: Appearance,Urine Clear (Clear); Bacteria,Urine Rare /hpf; Bilirubin,Urine Negative (Negative); Blood,Urine Small (Negative); Color,Urine Yellow; Glucose,Urine (UA) Negative (Negative); Hyaline Casts,Urine 2 /lpf (0-2); Ketones,Urine 2+ (Negative); Leukocyte Esterase,Urine Negative (Negative); Mucus,Urine Moderate /hpf; Nitrite,Urine Negative (Negative); PH, Urine 5.5 (5.0-8.0); Protein,Urine Negative (Negative); RBC,Urine 16 /hpf (0-5); Specific Gravity,Urine 1.022 (1.001-1.035); Squamous Epithelial Cell,Urine 3 /hpf (0-4); Urobilinogen,Urine <2.0 mg/dL (<2.0); WBC,Urine 3 /hpf (0-5)
--- NOTE | 2018-12-21 19:32 | XR ---
EXAMINATION TYPE: XR chest 2V DATE OF EXAM: 12/21/2018 COMPARISON: Prior chest x-ray 11/06/2002 HISTORY: Fever and chills TECHNIQUE: Frontal and lateral views of the chest are obtained. FINDINGS: Perihilar airspace disease is present on the right. There are cardiac leads. There is no p leural effusion or pneumothorax seen. The cardiac silhouette size is within normal limits. The oss eous structures are intact. IMPRESSION: Right upper lobe pneumonia, follow-up to resolution.
[2018-12-21] MEDS ORDERED: AZITHROMYCIN 500 MG TAB PO STA (19:43)
[2018-12-21 20:14] VITALS: BP 113/92; PULSE 103
[2018-12-21 20:18] VITALS: TEMP 100.1
[2018-12-21] MEDS ORDERED: AMOXIC-POT CLAV 875MG STARTER 2 EACH TABLET PO STA (20:33)
== END 2018-12-21 20:53 | disposition home or self-care (01) ==
LOC: EC 18:05
DX: J18.9 Pneumonia, unspecified organism (principal); Z79.3 Long term (current) use of hormonal contraceptives; Z79.899 Other long term (current) drug therapy; Z88.2 Allergy status to sulfonamides; Z88.7 Allergy status to serum and vaccine
CPT/HCPCS: 71046; 81001; 81025; 87502; 99283

== ENCOUNTER → 2020-09-20 | Outpatient (CLI) | payer OTHER ==
--- NOTE | 2020-09-21 09:05 | XR ---
EXAMINATION TYPE: XR abdomen 1V DATE OF EXAM: 09/20/2020 COMPARISON: NONE HISTORY: Misplaced IUD. TECHNIQUE: One view abdominal series FINDINGS: The osseous structures are intact. The bowel gas pattern is nonspecific. Lung bases are clear. Intr auterine device is seen overlying the left iliac bone. IMPRESSION: 1. Intrauterine device is seen overlying the left iliac bone correlate for malpositioning. This may b e extrauterine..
--- NOTE | 2020-09-21 09:23 | XR ---
EXAMINATION TYPE: XR pelvis AP view DATE OF EXAM: 09/20/2020 COMPARISON: NONE HISTORY: Misplaced IUD The osseous structures are intact and the joint spaces are preserved. No acute fracture is seen. Vi sualized bowel gas pattern is nonspecific. There is an IUD overlying the left iliac bone. IMPRESSION: 1. IUD overlying the left SI joint and iliac bone correlate for malpositioning. This may lie outside of the uterus.
== END | disposition home or self-care (01) ==
LOC: RADXRMAIN 15:47
PROVIDERS: ATTEND Obstetrics & Gynecology
DX: Z97.5 Presence of (intrauterine) contraceptive device (principal)
CPT/HCPCS: 72170; 74018

== ENCOUNTER → 2020-09-20 | Outpatient (CLI) | payer OTHER ==
--- NOTE | 2020-09-20 15:49 | US ---
EXAMINATION TYPE: US pelvis complete transvag DATE OF EXAM: 09/20/2020 COMPARISON: NONE CLINICAL HISTORY: Z97.5 IUD in[address], T83.32XXA IUD string lost. TECHNIQUE: Transvaginal (TV) and Transabdominal (TA) . Transabdominal sonographic images of the pel vis were acquired. Transvaginal sonographic images were medically necessary to better assess the fol lowing anatomy: IUD placement Date of LMP: 09/05/20 EXAM MEASUREMENTS: Uterus: 5.9 x 3.1 x 3.7 cm Endometrial Stripe: 0.4 cm Right Ovary: 3.9 x 1.8 x 1.5 cm Left Ovary: 2.3 x 1.5 x 1.5 cm 1. Uterus: Anteverted wnl 2. Endometrium: wnl 3. Right Ovary: multiple follicles noted 4. Left Ovary: wnl 5. Bilateral Adnexa: wnl 6. Posterior cul-de-sac: wnl Unable to visualized IUD on today's ultrasound. IMPRESSION: 1. IUD is not identified during this examination. Endometrial canal appears within normal limits.
== END | disposition home or self-care (01) ==
LOC: RADUSWWP 12:47
PROVIDERS: ATTEND Obstetrics & Gynecology
DX: T83.32XA Displacement of intrauterine contraceptive device, initial encounter (principal)
CPT/HCPCS: 76830; 76856

== ENCOUNTER 2020-10-26 06:44 | Day surgery (SDC) | payer OTHER ==
[2020-10-24 12:29] VITALS: BMI 34.0
--- NOTE | 2020-10-25 16:21 | P.HPOB ---
History of Present Illness H&P Date: 10/25/20 Chief Complaint: displaced IUD and family planning 30 year old presents for laparoscopic removal of IUD and laparoscopic tubal ligation. US showed IUD to not be in the uterus. Flat plate of abdomen showed IUD in left lower quadrant. Review of Systems All systems: negative Constitutional: Denies chills, Denies fever Eyes: denies blurred vision, denies pain Ears, nose, mouth and throat: Denies headache, Denies sore throat Cardiovascular: Denies chest pain, Denies shortness of breath Respiratory: Denies cough Gastrointestinal: Denies abdominal pain, Denies diarrhea, Denies nausea, Denies vomiting Genitourinary: Denies dysuria, Denies hematuria Musculoskeletal: Denies myalgias Integumentary: Denies pruritus, Denies rash Neurological: Denies numbness, Denies weakness Psychiatric: Denies anxiety, Denies depression Endocrine: Denies fatigue, Denies weight change Past Medical History Past Medical History: No Reported History History of Any Multi-Drug Resistant Organisms: None Reported Past Surgical History: Adenoidectomy, Section, Tonsillectomy Additional Past Surgical History / Comment(s): LEEP PROCEDURE, Past Anesthesia/Blood Transfusion Reactions: No Reported Reaction Smoking Status: Never smoker - Past Family History Mother Family Medical History: Hypertension Medications and Allergies Home Medications Medication Instructions Recorded Confirmed Type buPROPion XL [Wellbutrin Xl] 150 mg PO DAILY 10/24/20 10/24/20 History Allergies Allergy/AdvReac Type Severity Reaction Status Date / Time measles, mumps, and rubella Allergy Unknown Verified 10/24/20 12:05 vaccine Childhood [From M-M-R II] Sulfa (Sulfonamide Allergy Rash/Hives Verified 10/24/20 12:05 Antibiotics) Exam Osteopathic Statement: *. No significant issues noted on an osteopathic structural exam other than those noted in the History and Physical/Consult. HEart: RRR Lungs: CTAB Abdomen: soft, nontender Extremeties: neg berna's Assessment and Plan (1) Family planning Narrative/Plan: IUD is not in uterus. Status: Acute Code(s): Z30.09 - ENCOUNTER FOR OTH GENERAL CNSL AND ADVICE ON CONTRACEPTION SNOMED Code(s): 478507953 Plan: 1. laparoscopic tubal ligation with removal of IUD.
[~2020-10-26 06:44] MED LIST changes: +DEXAMETHASONE SOD PHOSPHATE 4 MG/ML 1 ML VIAL IV ONE; -HYDROmorphone 0.5 MG/0.5 ML SYRINGE IVP PRN; +LIDOCAINE 1% (10MG/ML) FOR IV START INTRADERMA PRN; +MIDAZOLAM 2 MG/2 ML VIAL IV PRN; -ONDANSETRON 4 MG/2 ML VIAL IVP PRN
[2020-10-26] MEDS ORDERED: HYDROmorphone 0.5 MG/0.5 ML SYRINGE IVP PRN (07:00)
[2020-10-26 07:17] VITALS: RESP 16
[2020-10-26] MEDS ORDERED: ONDANSETRON 4 MG/2 ML VIAL ONE (07:31)
[2020-10-26] MEDS ORDERED: ONDANSETRON 4 MG/2 ML VIAL IVP ONE (07:35)
[2020-10-26] MEDS ORDERED: PROPOFOL 10 MG/ML 20 ML VIAL IV ONE (07:45)
[2020-10-26] MEDS ORDERED: MIDAZOLAM 2 MG/2 ML VIAL ONE (07:45)
[2020-10-26] MEDS ORDERED: KETOROLAC 15 MG/ML 1 ML VIAL ONE (07:45)
[2020-10-26] MEDS ORDERED: LIDOCAINE 1% INJ 10MG/ML (20 ML MDV) ONE (07:45)
[2020-10-26] MEDS ORDERED: ROCURONIUM 10 MG/ML (10 ML VIAL) IV ONE (07:45)
[2020-10-26] MEDS ORDERED: GLYCOPYRROLATE 0.2 MG/ML 2 ML VIAL ONE (07:45)
[2020-10-26] MEDS ORDERED: NEOSTIGMINE 1 MG/ML 10 ML VIAL ONE (07:45)
[2020-10-26] MEDS ORDERED: fentaNYL (PF) 50 MCG/ML 2 ML AMP ONE (07:45)
[2020-10-26] MEDS ORDERED: BUPIVACAINE (PF) 0.25% 30 ML VIAL SQ ONE ×3 (08:05→08:57)
--- NOTE | 2020-10-26 09:02 | XR ---
EXAMINATION TYPE: XR KUB portable DATE OF EXAM: 10/26/2020 COMPARISON: 10/26/2020 HISTORY: IUD TECHNIQUE: One view abdominal series FINDINGS: The osseous structures are intact. The bowel gas pattern is nonspecific. Large amount of free intrap eritoneal air. IUD is seen in the left upper quadrant and malpositioned. Report immediately called to referring surgeon on 10/26/2020 and 8:58 AM. Osseous structures. IMPRESSION: 1. IUD seen in the left upper quadrant and malpositioned. Report called to referring surgeon. Free ai r seen throughout the abdomen also noted.
--- NOTE | 2020-10-26 09:13 | FL ---
EXAMINATION TYPE: FL guidance operating room DATE OF EXAM: 10/26/2020 HISTORY: Fluoroscopy time 32 seconds of fluoroscopy provided. IMPRESSION: 1. Fluoroscopy time.
[2020-10-26 09:17] VITALS: TEMP 97
[2020-10-26] MEDS ORDERED: Acetaminophen-Codeine 300-30mg TAB PO ONE (11:00)
[2020-10-26] MEDS ORDERED: Acetaminophen-Codeine 300-30mg TAB ONE (11:00)
[2020-10-26 11:58] VITALS: BP 117/79; PULSE 100
--- NOTE | 2020-10-26 12:36 | P.OP ---
Date of Procedure: 10/26/20 Preoperative Diagnosis: 1. displaced IUD 2. family planning Postoperative Diagnosis: 1. displaced IUD 2. family planning Procedure(s) Performed: Laparoscopic tubal ligation with removal of intrauterine device from the abdomen. Anesthesia: VINICIUSA Surgeon: Mai Gregory Estimated Blood Loss (ml): 5 IV fluids (ml): 500 Urine output (ml): 25 Pathology: none sent Condition: stable Disposition: PACU Indications for Procedure: Patient presented to my office for IUD removal but the strings were not seen. Ultrasound showed that the IUD is not in the uterus. Flatplate of the abdomen showed the IUD in the left lower quadrant. Operative Findings: Normal uterus tubes and ovaries, Mirena IUD within the omentum on the left side. Description of Procedure: Patient was taken to the operating room where general anesthesia was obtained without difficulty. She was prepped and draped in normal sterile fashion in the dorsal lithotomy position, legs placed in the Martin stirrups. Bladder drained of all urine. [place] speculum placed in the vagina and the anterior lip the cervix was grasped with single-tooth tenaculum. The uterus is sounded to 7 cm and the kroner manipulator was placed. Attention was then turned to the abdomen and gloves were changed. A 5 mm infraumbilical incision was made the scalpel and 5mm optical trocar was placed under direct visualization. A 5 mm s uprapubic Incision was made and a 5 mm optical trocar was placed under direct visualization. Survey of the pelvis revealed normal uterus tubes and ovaries. The left fallopian tube was grasped with a Kleppinger and fulgurated 2-3 cm on this side in the ampullar portion. The right fallopian tube was grasped with a Kleppinger and fulgurated 2-3 cm in the ampullar portion. I surveyed the pelvis and the abdomen to find the intrauterine device. I was unable to see it in the left lower quadrant or left side at all. Fluoroscopy was also unable to visualize. Flat plate of the abdomen during the procedure showed the IUD to be the left upper quadrant. I then used the laparoscope to see the IUD underneath and embedded in the omentum. I made a third incision in the right lower quadrant 5 mm, 5 mm optical trocar placed under direct visualization. I used the 5 mm LigaSure to free the IUD. It was then removed through the suprapubic incision. I took the All instruments were then removed from the abdomen and vagina. The 5 mm incisions were closed with 4-0 Vicryl in a subcuticular fashion. Patient tolerated procedure well, sponge and instrument counts correct 2 and she was taken to recovery room in stable condition.
== END 2020-10-26 12:15 | disposition home or self-care (01) ==
LOC: OR 06:44
PROVIDERS: ATTEND Obstetrics & Gynecology
DX: Z30.2 Encounter for sterilization (principal); T83.32XA Displacement of intrauterine contraceptive device, initial encounter; Z88.2 Allergy status to sulfonamides; Z88.7 Allergy status to serum and vaccine; F32.9 Major depressive disorder, single episode, unspecified; Z98.891 History of uterine scar from previous surgery; Z79.899 Other long term (current) drug therapy; Z82.49 Family history of ischemic heart disease and other diseases of the circulatory system; Z98.890 Other specified postprocedural states
CPT/HCPCS: 81025; 74018; 58301; 58670; J2250; J1100; J2710; J2405; J2001; J3010; J1885; J2704; J1170

== ENCOUNTER 2023-02-21 17:02 | Emergency (ER) | payer OTHER ==
[2023-02-21 17:33] VITALS: TEMP 98.9
--- NOTE | 2023-02-21 17:48 | ED ---
General Adult HPI - General Chief complaint: Upper Respiratory Infection Stated complaint: COVID+ Time Seen by Provider: 02/21/23 17:40 Source: patient, RN notes reviewed Mode of arrival: ambulatory Limitations: no limitations - History of Present Illness Initial comments: 33-year-old female who recently tested positive for Covid earlier today presents to the emergency department with a chief complaint of headache. Patient reports her symptoms started today she is complaining of congestion,, chills and a headache. She reports the headache feels like pressure in her sinuses. There is tried taking Tylenol Motrin for the headache with no symptomatically relief. She does not describe this headache is the worst headache in her life. She denies any injury or trauma. Denies any dizziness, lightheaded, vision loss, vision changes, sore throat, chest pain, cough, shortness of breath. - Related Data Home Medications Medication Instructions Recorded Confirmed Triamcinolone 0.1% Cream [Kenalog 1 applicatio TOPICAL BID PRN 02/21/23 02/21/23 0.1% Cream] buPROPion XL [Wellbutrin XL] 300 mg PO HS 02/21/23 02/21/23 Allergies Allergy/AdvReac Type Severity Reaction Status Date / Time measles, mumps, and rubella Allergy Unknown Verified 02/21/23 17:40 vaccine Childhood [From M-M-R II] Sulfa (Sulfonamide Allergy Rash/Hives Verified 02/21/23 17:40 Antibiotics) Review of Systems ROS Statement: Those systems with pertinent positive or pertinent negative responses have been documented in the HPI. ROS Other: All systems not noted in ROS Statement are negative. Past Medical History Past Medical History: No Reported History Additional Past Medical History / Comment(s): COVID 02/21/23 History of Any Multi-Drug Resistant Organisms: None Reported Past Surgical History: Adenoidectomy, Section, Tonsillectomy Additional Past Surgical History / Comment(s): LEEP PROCEDURE, Past Anesthesia/Blood Transfusion Reactions: No Reported Reaction Past Psychological History: Depression Smoking Status: Never smoker, Vaper Past Alcohol Use History: None Reported Past Drug Use History: Marijuana - Past Family History Mother Family Medical History: Hypertension General Exam - General Exam Comments Initial Comments: General: Alert, in no acute distress Head: atraumatic normocephalic. Eyes PERRL, EOMI intact, mucous membranes moist Respiratory: Lungs clear to auscultation bilaterally Cardiovascular: Regular rate and rhythm Abdominal: Soft without guarding or rebound Extremities: Normal inspection with full range of motion and normal capillary refill Neuroogic: alert and oriented 3, CN II-XII intact, able to ambulate with steady gait Skin: warm dry and intact with normal color Limitations: no limitations Course Vital Signs 02/21/23 02/21/23 02/21/23 17:30 18:05 20:33 Temperature 98.9 F Pulse Rate 113 H 90 Respiratory 20 18 20 Rate Blood Pressure 146/87 130/82 O2 Sat by Pulse 100 98 Oximetry Medical Decision Making - Medical Decision Making Was pt. sent in by a medical professional or institution (, [facility], [facility], urgent care, hospital, or correction...) When possible be specific @ -[No] Did you speak to anyone other than the patient for history (EMS, parent, family, police, friend...)? What history was obtained from this source @ -[No] Did you review nursing and triage notes (agree or disagree)? Why? @ -[I reviewed and agree with nursing and triage notes] Were old charts reviewed (outside hosp., previous admission, EMS record, old EKG, old radiological studies, urgent care reports/EKG's, correction records)? Report findings @ -[No old charts were reviewed] Differential Diagnosis (chest pain, altered mental status, abdominal pain women, abdominal pain men, vaginal bleeding, weakness, fever, dyspnea, syncope, headache, dizziness, GI bleed, back pain, seizure, CVA, palpatations, mental health, musculoskeletal)? @ -[not applicable] EKG interpreted by me (3pts min.). @ -[As above] X-rays interpreted by me (1pt min.). @ -[None done] CT interpreted by me (1pt min.). @ -[None done] U/S interpreted by me (1pt. min.). @ -[None done] What testing was considered but not performed or refused? (CT, X-rays, U/S, labs)? Why? @ -[None] What meds were considered but not given or refused? Why? @ -[None] Did you discuss the management of the patient with other professionals (professionals i.e. , [facility], [facility], lab, RT, psych nurse, social service manager, industrial staff nurse, teacher, crime prevention police officer, director of casework services)? Give summary @ -[No] Was smoking cessation discussed for >3mins.? @ -[No] Was critical care preformed (if so, how long)? @ -[No] Were there social determinants of health that impacted care today? How? (Homelessness, low income, unemployed, alcoholism, drug addiction, transportation, low edu. Level, literacy, decrease access to med. care, senior care, rehab)? @ -[No] Was there de-escalation of care discussed even if they declined (Discuss DNR or withdrawal of care, Hospice)? DNR status @ -[No] What co-morbidities impacted this encounter? (DM, HTN, Smoking, COPD, CAD, Cancer, CVA, ARF, Chemo, Hep., AIDS, mental health diagnosis, sleep apnea, morbid obesity)? @ -[None] Was patient admitted / discharged? Hospital course, mention meds given and r oute, prescriptions, significant lab abnormalities, going to OR and other pertinent info. @ -[Discharged. This is a 33-year-old female who presents to the emergency department with COVID19. Patient had a thorough history and physical exam performed on the ED. Heart rate regular rate and rhythm, lungs are to auscultation bilaterally, abdomen soft and nontender. There are no focal deficits noted on exam. Patient able to ambulate with a steady gait. Patient had imaging performed which was essentially unremarkable. Patient was given Toradol with symptomatic relief. I discussed the results in detail with the patient verbalized understanding and all questions were addressed. Patient will be discharged in stable condition. He is discussed with Dr. Chaves [facility] who agrees with plan of care Undiagnosed new problem with uncertain prognosis? @ -[No] Drug Therapy requiring intensive monitoring for toxicity (Heparin, Nitro, Insulin, Cardizem)? @ -[No] Were any procedures done? @ -[No] Diagnosis/symptom? @ -COVID 19 - Headache Acute, or Chronic, or Acute on Chronic? @ -Acute Uncomplicated (without systemic symptoms) or Complicated (systemic symptoms)? @ -Uncomplicated Side effects of treatment? @ -[No] Exacerbation, Progression, or Severe Exacerbation? @ -[No] Poses a threat to life or bodily function? How? (Chest pain, [place], [place], pneumonia, PE, COPD, DKA, ARF, appy, cholecystitis, CVA, Diverticulitis, Homicidal, Suicidal, threat to staff... and all critical care pts) @ -Low likelihood - Lab Data Lab Results 02/21/23 Range/Units 19:53 Urine HCG, Qual Not Detected (Not Detectd) Disposition Clinical Impression: COVID-19, Headache Disposition: HOME SELF-CARE Condition: Stable Instructions (If sedation given, give patient instructions): Upper Respiratory Infection (ED) Additional Instructions: These return to the nearest emergency department if symptoms worsen or persist Is patient prescribed a controlled substance at d/c from ED?: No Referrals: Mk Barrientos MD [Primary Care Provider] - 1-2 days Time of Disposition: 17:48
[2023-02-21] MEDS ORDERED: KETOROLAC 15 MG/ML 1 ML VIAL IVP STA (19:40)
[2023-02-21] MEDS ORDERED: KETOROLAC 15 MG/ML 1 ML VIAL IM STA (19:45)
[2023-02-21 20:34] VITALS: BP 130/82; PULSE 90; RESP 20
== END 2023-02-21 20:50 | disposition home or self-care (01) ==
LOC: EC 17:02
DX: U07.1 COVID-19 (principal); F32.A Depression, unspecified; F17.290 Nicotine dependence, other tobacco product, uncomplicated; F12.90 Cannabis use, unspecified, uncomplicated; Z88.2 Allergy status to sulfonamides; Z88.7 Allergy status to serum and vaccine; Z79.899 Other long term (current) drug therapy
CPT/HCPCS: 81025; 99284; 96372; J1885